=== PATIENT | male | born 1950 | race Caucasian/White ===

== ENCOUNTER → 2017-05-15 | Outpatient (CLI) | payer MEDICARE ==
--- NOTE | 2017-05-15 13:51 | US ---
EXAM DESCRIPTION: Abdomen,Complete: Ultrasound. CLINICAL HISTORY: TOBACCO USE COMPARISON: None Available. TECHNIQUE: Transabdominal scannin-dimensional and Doppler modes. FINDINGS: Gallbladder: Normal size with no intraluminal stones or sludge. Wall thickness 1.9 mm with no fluid. Nontender with transducer pressure. Common bile duct: Normal caliber 3.0 mm. Liver: Normal echogenicity. Normal intrahepatic ducts. Smooth capsule. Normal hepatopedal flow in the portal vein. Long axis of the right lobe is 14.4 cm. Cyst in the left lobe measures 3.1 x 2.6 cm and is avascular. Pancreas: Normal echogenicity of the head and body and normal size. Tail was not well visualized. Duct was not seen. Abdominal aorta: Normal caliber from the proximal segment to the bifurcation. IVC: visualized; normal caliber. Spleen heterogeneous echogenicity; long axis measurement is 11 cm. Right kidney: Long axis is 9.8 cm. Normal cortical echogenicity and thickness. No hydronephrosis. Left kidney: Long axis is 10.6 cm. Normal cortical echogenicity and thickness. No hydronephrosis. IMPRESSION: 1. Normal ultrasound of the gallbladder. Normal ducts. Normal size and echogenicity of the liver except for 3 cm cyst. Normal ducts. Smooth capsule. Normal vascularity. No ascites. 2. The included pancreas was unremarkable. Tail not well visualized. Normal caliber of the abdominal aorta and IVC. 3. Heterogeneous echoes of the spleen but normal size. Normal ultrasound of the bilateral kidneys. Electronically signed by: Kash Lowry MD 05/15/2017 1:50 PM CDT
== END ==
LOC: US 09:03
PROVIDERS: ATTEND Internal Medicine
DX: Z72.0 Tobacco use (principal)

== ENCOUNTER → 2018-04-15 | Outpatient (CLI) | payer MEDICARE | LOC: GMAHI 14:40 | PROVIDERS: ATTEND Nurse Practitioner Family | DX: E29.1 Testicular hypofunction (principal) ==

== ENCOUNTER → 2018-04-23 | Outpatient (CLI) | payer MEDICARE | LOC: GMAM 10:52 | PROVIDERS: ATTEND Family Medicine | DX: Z12.5 Encounter for screening for malignant neoplasm of prostate (principal) ==

== ENCOUNTER → 2018-05-14 | Outpatient (CLI) | payer MEDICARE, OTHER ==
--- NOTE | 2018-05-14 14:49 | CT ---
Procedure: CT LUNG SCREENING Exam Date: 05/14/2018 Ordering Provider: Nic Hoffman Clinical Indication: PERSONAL HISTORY OF TOBACCO DEPENDENCY. Current smoker. 20 pack years. This patient meets eligibility criteria for low-dose CT lung cancer screening. Comparison: Chest x-ray 03/11/2018. Technique: Using a multislice scanner, sequential helical axial imaging was obtained in the thorax, 2.5 mm thickness, 2.5 mm separation, from the level of the thoracic inlet through the lung bases without IV contrast. A low dose protocol was utilized for BMI less than 30: BMI: 23.9. CTDI: 1.76 mGy. 120. kVp. 45 mA. DLP 71.51 mGy centimeters. 2D sagittal and coronal reconstructed images, 6.0 mm thickness, were obtained. This exam was performed according to our departmental dose optimization program which includes use of automated exposure control, adjustment of the mA and/or kV according to patient size and/or use of iterative reconstruction technique. Nodule measurements under 10 mm are given as mean value of 3 axes diameters. FINDINGS: Lungs and large airways: Bilateral pleural-parenchymal scarring inferior lingula and inferior right middle lobe. 3 mm soft tissue nodule with pleural extension on axial series 2, image 98. Scattered centrilobular blebs in the upper lobes. Small peripheral groundglass densities posterior lower lobes near the bases. Pleura and space: Bilateral scattered focal pleural thickening. No effusion or pneumothorax. Mediastinum and alex: evaluation limited by low dose technique and lack of IV contrast. Small mediastinal lymph nodes with no gross ttao or soft tissue mass enlargement. Heart and great vessels: Coronary artery calcifications. Minimal atherosclerotic calcifications in the aorta and proximal brachiocephalic vessels. Chest wall, lower neck, axillae: Evaluation also limited by same factors as described above. Negative. Upper abdomen: No free air or fluid in the included peritoneal space. No fatty stranding. Abdominal aorta atherosclerotic calcifications also involving the origins of the celiac axis and SMA. Normal size and density of the spleen and adrenal glands. 2.7 cm circumscribed mass with fluid density of +5 in the lateral segment of the left hepatic lobe. Gallbladder partially visualized. Osseous structures: Evaluation limited by low dose MIP technique. Minimal spondylosis lower thoracic spine. Prior rotator cuff repair right shoulder. Right lateral rib deformities, not acute. No lytic or blastic lesions. IMPRESSION: 1. No abnormal nodules, masses, or focal infiltrates. Emphysematous changes predominantly upper lobe. [facility] Best Practice recommendations: One-year low-dose CT lung screening follow-up.. Please see below for Lung RADS category and FOLLOW-UP.* *Lung RADS category Category 1 - No nodule or definitely benign nodules (probability of malignancy less than 1%). Follow-up: Continue annual screening with Low Dose Chest CT in 12 months. 2. 2.7 cm cyst lateral segment left hepatic lobe. No imaging follow-up recommended. Electronically signed by: Kash Lowry MD 05/14/2018 2:46 PM CDT
== END ==
LOC: CT 10:00
PROVIDERS: ATTEND Family Medicine
DX: Z87.891 Personal history of nicotine dependence (principal)

== ENCOUNTER → 2018-11-18 | Outpatient (CLI) | payer MEDICARE, OTHER | LOC: GMAM 10:49 | PROVIDERS: ATTEND Family Medicine | DX: E29.1 Testicular hypofunction (principal); I10 Essential (primary) hypertension ==

== ENCOUNTER 2019-04-13 17:22 | Emergency (ER) | payer MEDICARE, OTHER ==
[2019-04-13] MEDS ORDERED: HYDROmorphone HCL INJ 2 MG/ML VIAL IV ONE ×3 (18:11→23:43)
--- NOTE | 2019-04-13 18:12 | RAD ---
EXAM: XR Left Hip With Pelvis When Performed, 2 or 3 Views CLINICAL HISTORY: fall with hip pain TECHNIQUE: Two or three views of the left hip with pelvis when performed. COMPARISON: No relevant prior studies available. FINDINGS: Bones/joints: There is subcapital fracture of the left femur without significant displacement. No dislocation. Soft tissues: Unremarkable. IMPRESSION: There is subcapital fracture of the left femur without significant displacement. Electronically signed by: Albina Huntley MD 04/13/2019 6:11 PM [facility] [[email or web address]]
--- NOTE | 2019-04-13 18:13 | RAD ---
EXAM: XR Pelvis, 1 or 2 Views CLINICAL HISTORY: fall with hip pain TECHNIQUE: Frontal view of the pelvis. COMPARISON: No relevant prior studies available. FINDINGS: Bones/joints: Left subcapital femur fracture noted. No dislocation. Soft tissues: Unremarkable. IMPRESSION: Left subcapital femur fracture noted. Electronically signed by: Albina Huntley MD 04/13/2019 6:11 PM [facility]
--- NOTE | 2019-04-13 18:34 | ED.PDOC ---
History of Present Illness - General Chief Complaint: Trauma Stated Complaint: s/p fall Time Seen by Provider: 04/13/19 17:25 Source: patient Exam Limitations: no limitations - History of Present Illness Initial Comments: The patient is a 68-year-old male presented to the emergency room after having fallen while getting out of his truck on the side of the road. The patient has some mild eversion distally. He has pain in the left hip. No pain elsewhere. He does appear to be neurovascularly intact. Pain is quite severe. Vital signs are stable. Timing/Duration: momentarily Severity: severe Improving Factors: immobilization Worsening Factors: movement Associated Symptoms: denies symptoms Allergies/Adverse Reactions: Allergies NO KNOWN ALLERGY Allergy (Verified 04/13/19 17:49) Home Medications: Ambulatory Orders Atorvastatin Calcium [Lipitor] 10 mg PO BEDTIME 04/13/19 Carvedilol [Coreg] 12.5 mg PO BID 04/13/19 Clopidogrel Bisulfate [Plavix] 75 mg PO QD 04/13/19 Lisinopril 20 mg PO BID 04/13/19 Trazodone HCl [Trazodone Hydrochloride] 300 mg PO BEDTIME 04/13/19 Review of Systems - Review of Systems Constitutional: States: no symptoms reported EENTM: States: no symptoms reported Respiratory: States: no symptoms reported Cardiology: States: no symptoms reported Gastrointestinal/Abdominal: States: no symptoms reported Genitourinary: States: no symptoms reported Musculoskeletal: States: see HPI Skin: States: no symptoms reported Neurological: States: no symptoms reported Endocrine: States: no symptoms reported All other Systems: No Change from Baseline Past Medical History (General) - Patient Medical History Hx Stroke: No Hx Congestive Heart Failure: No Hx Hypertension: Yes Hx Diabetes: No Hx Cancer: Yes - Nose - Vaccination History Hx Influenza Vaccination: No Hx Pneumococcal Vaccination: No - Social History Hx Tobacco Use: Yes Family Medical History - Family History Father Family History: Unknown Living Status: Still Living Physical Exam - Physical Exam General Appearance: Alert, Obvious distress Eye Exam: bilateral normal Ears, Nose, Throat: hearing grossly normal, normal pharynx Neck: full range of motion, supple Respiratory: lungs clear, normal breath sounds, no respiratory distress, no accessory muscle use Cardiovascular/Chest: normal peripheral pulses, regular rate, rhythm, no edema Peripheral Pulses: radial,right: 2+, radial,left: 2+, dorsalis pedis,right: 2+, dorsalis pedis,left: 2+, posterior tibialis,right: 2+, posterior tibialis,left: 2+ Gastrointestinal/Abdominal: non tender, soft Rectal Exam: deferred, other - Pelvis is stable Back Exam: normal inspection, no CVA tenderness, no vertebral tenderness Extremity: no pedal edema, normal capillary refill, other - Left hip pain. See history of present illness. 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 The patient will be put in the hospital for the night for pain control and plans to have the surgical repair tomorrow. Plavix will be held. N.p.o. after 2 AM. Admit for above. 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 Laboratory Tests 04/13/19 04/13/19 17:10 17:10 WBC 5.2 RBC 3.65 L Hgb 12.6 L Hct 37.6 L MCV 103.1 H MCH 34.7 H MCHC 33.6 RDW 14.9 H Plt Count 201 MPV 9.2 Absolute Neuts (auto) 3.40 Absolute Lymphs (auto) 0.90 L Absolute Monos (auto) 0.70 Absolute Eos (auto) 0.10 Absolute Basos (auto) 0.10 Neutrophils % 65.8 Lymphocytes % 18.1 L Monocytes % 13.9 H Eosinophils % 1.2 Basophils % 1.0 Sodium 136 Potassium 3.6 Chloride 102 Carbon Dioxide 21 Anion Gap 16.6 BUN 6 L Creatinine 0.85 BUN/Creatinine Ratio 7.1 L Random Glucose 87 Serum Osmolality 268.9 L Calcium 9.2 Total Bilirubin 0.5 AST 26 ALT 16 Alkaline Phosphatase 80 Serum Total Protein 6.9 Albumin 3.7 Globulin 3.2 Albumin/Globulin Ratio 1.2 Departure - Departure Clinical Impression: Closed left hip fracture Qualifiers: Encounter type: initial encounter Qualified Code(s): S72.002A - Fracture of unspecified part of neck of left femur, initial encounter for closed fracture Disposition: Admit Patient Condition: Fair Departure Forms: ED Discharge - Pt. Copy, Patient Portal Self Enrollment Referrals: Griffin Webster MD [Primary Care Provider] - 1-2 Weeks Home Medications: Ambulatory Orders Atorvastatin Calcium [Lipitor] 10 mg PO BEDTIME 04/13/19 Carvedilol [Coreg] 12.5 mg PO BID 04/13/19 Clopidogrel Bisulfate [Plavix] 75 mg PO QD 04/13/19 Lisinopril 20 mg PO BID 04/13/19 Trazodone HCl [Trazodone Hydrochloride] 300 mg PO BEDTIME 04/13/19 Decision To Admit - Decistion To Admit Decision to Admit Reason: Accidental Injury Decision to Admit Date: 04/13/19 Decision to Admit Time: 18:35
[2019-04-14 00:06] VITALS: BP 125/61; TEMP 98.1; O2SAT 93
== END 2019-04-14 00:30 | disposition short-term general hospital (02) ==
LOC: ER 17:22
DX: S72.012A Unspecified intracapsular fracture of left femur, initial encounter for closed fracture (principal); I10 Essential (primary) hypertension; Z87.891 Personal history of nicotine dependence; Z85.89 Personal history of malignant neoplasm of other organs and systems; Z79.899 Other long term (current) drug therapy; V48.4XXA Person boarding or alighting a car injured in noncollision transport accident, initial encounter; Y92.410 Unspecified street and highway as the place of occurrence of the external cause
CPT/HCPCS: 72170; 73502; 80053; 85025; J1170

== ENCOUNTER → 2019-07-09 | Outpatient (CLI) | payer MEDICARE, OTHER | LOC: GMAM 11:29 | PROVIDERS: ATTEND Family Medicine | DX: Z12.5 Encounter for screening for malignant neoplasm of prostate (principal); I10 Essential (primary) hypertension ==

== ENCOUNTER → 2019-08-05 | Outpatient (CLI) | payer MEDICARE, OTHER ==
--- NOTE | 2019-08-05 13:42 | CT ---
Procedure: CT LUNG SCREENING Exam Date: 08/05/2019. Ordering Provider: Nic Hoffman Clinical Indication: PERSONAL HISTORY OF TOBACCO USE current cigarette smoker. 25 pack years. This patient meets eligibility criteria for low-dose CT lung cancer screening. Comparison: Low-dose CT lung cancer screening examination: Lung RADS 1. May 2018. Technique: Using a multislice scanner, sequential helical axial imaging was obtained in the thorax, 2.5 mm thickness, 2.5 mm separation, from the level of the thoracic inlet through the lung bases without IV contrast. A low dose protocol was utilized for BMI less than 30: BMI: 23.6. CTDI: 1.76 mGy. 120. kVp. 45 mA. DLP 73 mGy-cm. 2D sagittal and coronal reconstructed images, 6.0 mm thickness, were obtained. This exam was performed according to our departmental dose optimization program which includes use of automated exposure control, adjustment of the mA and/or kV according to patient size and/or use of iterative reconstruction technique. Nodule measurements under 10 mm are given as mean value of 3 axes diameters. FINDINGS: Lungs and large airways: Stable small subpleural nodule 3 mm diameter right middle lobe. Pleural parenchymal scarring right middle lobe and inferior lingula. Previous bibasilar densities are mostly resolved. Scattered parenchymal blebs more prominent in the upper lobes stable. No new abnormal nodule and no mass. No new infiltrates. Pleura and space: Unremarkable. Mediastinum and alex: evaluation limited by low dose technique and lack of IV contrast. Stable small nodes. Heart and great vessels: Atherosclerotic calcification in several brachiocephalic vessels, aortic arch, and coronary arteries, with no interval change. Chest wall, lower neck, axillae: Evaluation also limited by same factors as described above. Unremarkable. Upper abdomen: Evaluation limited by low-dose technique. No free fluid or free air in the included peritoneal space. Stable cyst left hepatic lobe. Normal size and density of the adrenal glands and spleen. Gallbladder visualized. Osseous structures: Evaluation limited by low dose MIP technique. No acute bony abnormalities. Prior rotator cuff surgery right shoulder. IMPRESSION: no new nodules. No new masses. Resolving bibasilar densities. Stable emphysematous changes upper lung hassan. [facility] Best Practice Recommendations: please see below for Lung RADS category and FOLLOW-UP.* *Lung RADS category Category 1 - No nodule or definitely benign nodules (probability of malignancy less than 1%). Follow-up: Continue annual screening with Low Dose Chest CT in 12 months. Electronically signed by: Kash Lowry MD 08/05/2019 1:41 PM CDT
== END ==
LOC: CT 09:30
PROVIDERS: ATTEND Family Medicine
DX: Z87.891 Personal history of nicotine dependence (principal); J43.9 Emphysema, unspecified; R91.8 Other nonspecific abnormal finding of lung field